=== PATIENT | female | born 2005 | race Two or more races ===

== ENCOUNTER 2023-07-17 10:26 | Emergency (ER) | payer OTHER ==
[~2023-07-17] VITALS: Ht 167.6 cm; Wt 65.8 kg
== END 2023-07-17 13:45 | disposition home or self-care (01) ==
LOC: ER 10:26 → EMR PED 10:26
PROVIDERS: Student in an Organized Health Care Education/Training Program
DX: S00.83XA Contusion of other part of head, initial encounter (principal); X58.XXXA Exposure to other specified factors, initial encounter; Y93.18 Activity, surfing, windsurfing and boogie boarding; Y92.832 Beach as the place of occurrence of the external cause; Y99.8 Other external cause status